=== PATIENT | female | born 1995 | race Two or more races ===

== ENCOUNTER 2020-01-13 22:17 | Emergency (ER) | payer SELFPAY ==
[~2020-01-13] VITALS: Ht 172.7 cm; Wt 86.8 kg
--- NOTE | 2020-01-13 23:07 | NUR ---
PT REPORTS SHE'S BEEN FEELING "IN POOR HEALTH" LATELY, SINCE SHE WAS DX WITH PID 2 WEEKS AGO. REPORTS SHE HASN'T BEEN EATING WELL, N/V, FATIGUE, AND BLOODY STOOL X2 DAYS. DENIES HEMORRHOIDS. NO PCP CURRENTLY. STATES SHE WAS [facility] WITH [facility].
--- NOTE | 2020-01-13 23:15 | NUR ---
PT AMBULATED TO BR WITHOUT DIFFICULTY.
[2020-01-13] MEDS ORDERED: ONDANSETRON ODT 4 MG PO ONE (23:30)
[2020-01-13] MEDS ORDERED: HYDROmorphone 1 MG/ML, 1ML INJ IM ONE (23:30)
[2020-01-13] MEDS ORDERED: KETOROLAC 30 MG/1 ML IM ONE (23:30)
[2020-01-13] MEDS ORDERED: KETOROLAC 60 MG/2 ML ONE (23:32)
[2020-01-13] MEDS ORDERED: HYDROmorphone 1 MG/ML, 1ML INJ ONE (23:32)
[2020-01-13] MEDS ORDERED: ONDANSETRON ODT 4 MG ONE (23:32)
--- NOTE | 2020-01-13 23:40 | NUR ---
PT MEDICATED PER ORDERS. AMBULATED TO CT WITH MAID CLEANING COOKING.
--- NOTE | 2020-01-14 00:13 | NUR ---
PT NAUSEOUS AGAIN. STATES PAIN MEDS HELPED A LITTLE BUT SHE STILL FEELS PAIN ON L SIDE HEAD. REPORTED TO DANAY JEFFERSON.
--- NOTE | 2020-01-14 00:15 | NUR ---
REPORT FROM BRAIN. PT ASSISTED TO BATHROOM. PT FEELING NAUSEOUS BUT AMBULATES WELL SHORT DISTANCES
[2020-01-14] MEDS ORDERED: SODIUM CHLORIDE FLUSH 10ML SYR IVF ONE (00:30)
[2020-01-14] MEDS ORDERED: DIPHENHYDRAMINE 50 MG/ML, 1ML IVPush ONE (00:30)
[2020-01-14] MEDS ORDERED: SODIUM CHLORIDE 0.9% 1,000ML IVBOLUS ONE (00:30)
[2020-01-14] MEDS ORDERED: PROCHLORPERAZINE 5 MG/ML, 2ML IVPush ONE (00:30)
[2020-01-14] MEDS ORDERED: DIPHENHYDRAMINE 50 MG/ML, 1ML ONE (00:39)
[2020-01-14] MEDS ORDERED: PROCHLORPERAZINE 5 MG/ML, 2ML ONE (00:39)
--- NOTE | 2020-01-14 00:48 | NUR ---
piv placed. fluids running and pt medicated. vss. father at bedside. call light in reach
[2020-01-14 00:50] VITALS: BP 114/70
--- NOTE | 2020-01-14 01:58 | NUR ---
Patient given discharge instructions and they have confirmed that they understand the instructions. Patient ambulatory with steady gait.
== END 2020-01-14 02:04 | disposition home or self-care (01) ==
LOC: ED 01-14 01:50
DX: G44.209 Tension-type headache, unspecified, not intractable (principal); R11.2 Nausea with vomiting, unspecified
CPT/HCPCS: 70450; 96372; 96374; 96375; 99285; J0780; J1170; J1200; J1885; J7030; Q0162; 99284